=== PATIENT | female | born 1955 | race Caucasian/White ===

== ENCOUNTER → 2017-12-09 | Outpatient (CLI) | payer OTHER ==
[~2017-12-09] MED LIST: VITAMIN D31000 UNI2 PO
[2017-12-10 20:27] LABS: HSV CSF Spec Source Vitreous (())
[2017-12-13 11:07] LABS: VARICELLA-ZOSTER VIRUS PCR+ <500 (<500)
== END | disposition home or self-care (01) ==
LOC: AMB 12:27
PROVIDERS: Ophthalmology
DX: H30.891 Other chorioretinal inflammations, right eye (principal); B00.59 Other herpesviral disease of eye
CPT/HCPCS: 87529 90; 87799 90; 99212; J1570